=== PATIENT | female | born 1960 | race Caucasian/White ===

== ENCOUNTER → 2017-07-05 | Outpatient (CLI) | payer OTHER ==
[~2017-07-05] MED LIST: HYDROCODONE BIT1 T11 PO; ZITHROMAX Z PA250 MG PO
== END | disposition home or self-care (01) ==
LOC: US 10:42
DX: R30.0 Dysuria (principal); R10.2 Pelvic and perineal pain

== ENCOUNTER → 2017-07-06 | Outpatient (CLI) | payer OTHER ==
[2017-07-06 13:22] LABS: BUN 16 mg/dl (7-24); CHLORIDE 106 mmol/L (98-107); POTASSIUM 4.4 mmol/L (3.5-5.1); SODIUM 142 mmol/L (136-145)
== END | disposition home or self-care (01) ==
LOC: LAB 12:51 → CT 12:51
PROVIDERS: Internal Medicine
DX: M51.26 Other intervertebral disc displacement, lumbar region (principal); M48.061 Spinal stenosis, lumbar region without neurogenic claudication; M46.00 Spinal enthesopathy, site unspecified

== ENCOUNTER → 2017-08-31 | Outpatient (CLI) | payer OTHER | END | disposition home or self-care (01) | LOC: MRI 11:20 | DX: M48.061 Spinal stenosis, lumbar region without neurogenic claudication (principal); M51.36 Other intervertebral disc degeneration, lumbar region ==